=== PATIENT | male | born 1945 | race Caucasian/White ===

== ENCOUNTER 2018-07-28 23:09 | Emergency (ER) | payer OTHER, MEDICAID ==
[~2018-07-28] VITALS: Ht 167.6 cm; Wt 39.5 kg
[2018-07-28] MEDS ORDERED: PLAVIX 75 MG TA75 M1 PO (23:26)
[2018-07-28] MEDS ORDERED: HYDROXYZINE HCL25 M1 PO (23:27)
[2018-07-28] MEDS ORDERED: DILTIAZEM HCL90 MG PO (23:27)
[2018-07-28] MEDS ORDERED: REMERON15 MG PO (23:28)
[2018-07-28] MEDS ORDERED: ATIVAN0.5 MG PO (23:28)
[2018-07-28] MEDS ORDERED: MS CONTIN 30 MG30 MG PO (23:28)
[2018-07-28] MEDS ORDERED: KLOR-CON 1010 MEQ PO (23:29)
[2018-07-28] MEDS ORDERED: AMBIEN 5 MG TABL5 M1 PO (23:29)
[2018-07-28] MEDS ORDERED: FLOMAX0.4 MG PO (23:29)
[2018-07-29 00:54] LABS: ABSOLUTE EOSINOPHILS 0.1 thou/uL (0.0-0.7); ABSOLUTE LYMPHOCYTES 1.6 thou/uL (0.8-5.3); ABSOLUTE MONOCYTES 0.6 thou/uL (0.0-1.2); ABSOLUTE NEUTROPHILS 2.9 thou/uL (1.6-8.1); BASOPHILS 0.6 %; HEMATOCRIT 31.4 % (42.0-52.0); HEMOGLOBIN 10.6 gm/dL (14.0-18.0); LYMPHOCYTES 30.9 %; MCH 30.8 pg (26.0-34.0); MCHC 33.9 g/dL (28.0-37.0); MCV 90.8 fL (80.0-100.0); MONOCYTES 11.2 %; MPV 7.9 fl. (7.2-11.1); NUCLEATED RBCS 0 /100WBC; PLATELET COUNT* 198 thou/uL (150-400); POLYS 56.3 %; RBC 3.46 mil/uL (4.50-6.00); RDW-CV 14.1 % (10.5-14.5); WBC 5.2 thou/uL (4.0-11.0)
[2018-07-29 00:59] LABS: ANION GAP 8 mmol/L (7-16); BUN 7 mg/dL (7-18); CALCIUM 8.7 mg/dL (8.5-10.1); CHLORIDE 100 mmol/L (98-107); CO2 29 mmol/L (21-32); CREATININE 0.8 mg/dL (0.6-1.3); GLUCOSE 79 mg/dL (70-99); POTASSIUM 3.4 mmol/L (3.5-5.1); SODIUM 137 mmol/L (136-145)
[2018-07-29 01:02] LABS: URINE BILIRUBIN NEGATIVE (Negative); URINE BLOOD NEGATIVE (Negative); URINE CLARITY CLEAR; URINE COLOR YELLOW; URINE GLUCOSE-RANDOM NEGATIVE (Negative); URINE KETONES NEGATIVE (Negative); URINE LEUKOCYTES-REFLEX NEGATIVE (Negative); URINE NITRITE-REFLEX NEGATIVE (Negative); URINE PROTEIN NEGATIVE (Negative); URINE SPECIFIC GRAVITY <= 1.005 (1.005-1.030); URINE UROBILINOGEN 0.2 E.U./dl (0.2-1.0)
[2018-07-29 01:08] LABS: ALBUMIN 2.8 g/dL (3.4-5.0); ALKALINE PHOSPHATASE 100 U/L (46-116); LIPASE 87 U/L (73-393); SGOT 21 U/L (15-37); SGPT 12 U/L (30-65); TOTAL BILIRUBIN 0.5 mg/dL (<0.1-1.0); TOTAL PROTEIN 6.1 g/dL (6.4-8.2); TROPONIN-I LEVEL <0.06 ng/mL (<0.06)
[2018-07-29 01:10] LABS: AMP/METHAMP Negative (Negative); BARBITURATES Negative (Negative); BENZODIAZEPINES Negative (Negative); COCAINE Negative (Negative); METHADONE Negative (Negative); OPIATES POSITIVE (Negative); PCP Negative (Negative); THC Negative (Negative)
[2018-07-29 01:48] VITALS: BP 107/54
== END 2018-07-29 01:48 | disposition home or self-care (01) ==
LOC: M.ERS 23:09
PROVIDERS: Emergency Medicine
DX: Z91.14 Patient's other noncompliance with medication regimen (principal); Z88.5 Allergy status to narcotic agent; Z88.8 Allergy status to other drugs, medicaments and biological substances; Z86.73 Personal history of transient ischemic attack (TIA), and cerebral infarction without residual deficits

== ENCOUNTER 2018-09-06 21:32 | Inpatient (IN) | payer OTHER, MEDICAID ==
[~2018-09-06] VITALS: Ht 170.2 cm; Wt 35.0 kg
--- NOTE | ~2018-09-06 | CON ---
[address] [address] CONSULTATION Name: MICAH LORENZO Room: [address] IN .R.#: [id number] Admission: 09/07/18 Attend Phys: Braulio Tovar MD Discharge: Date of : 49 Report #: [id number] THIS REPORT FOR: //name// CC: Braulio Davey DICTATED BY: Mariluz DELONGP DATE OF SERVICE: 09/07/2018 Please note at the time of this dictation, the patient was seen and physically examined by myself. REASON FOR CONSULTATION: Anemia. HISTORY OF PRESENT ILLNESS: This is a 72-year-old male who presented to the Emergency Room after falling several times at home and worsening over the past week. He was noted in the ER that he had a nondisplaced fracture of the right olecranon and right proximal humerus. He has been followed by Orthopedic and is currently placed in an immobilizer. The patient denies any overt bleeding. Denies any nausea, vomiting, abdominal pain or any change in his stools. He states he has had endoscopy studies, but he is unable to tell me where or when. The patient throughout the interview process kept falling asleep and unable to keep his eyes open and carry on a conversation. He states he has never been told he has been anemic before. He states he does not have much of an appetite and his general appearance is he is very thin and very cachectic looking. He states he lives with his daughter and granddaughter and they all help take care of each other. ALLERGIES: CODEINE AND HYDROCODONE. MEDICATIONS FROM HOME: Include lorazepam, Remeron, potassium, Flomax, and Ambien. 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 FAMILY HISTORY: Unable to obtain, he is unaware of any. SOCIAL HISTORY: He denies any alcohol use. He did smoke tobacco and has been addicted to morphine in the past and lives with his daughter and granddaughter at the present time. REVIEW OF SYSTEMS: Twelve-point review of systems is essentially negative. PHYSICAL EXAMINATION: [place] [address] CONSULTATION Name: MICAH LORENZO Room: [address]#: [id number] Admission: 09/07/18 Attend Phys: Braulio Tovar MD Discharge: Date of : 49 Report #: [id number] VITAL SIGNS: Temperature 36.8, pulse 89, respirations 16, blood pressure 139/87. HEART: Regular rate and rhythm. LUNGS: Clear, but diminished. ABDOMEN: Soft, positive bowel sounds in all 4 quadrants with no masses or tenderness noted. NEUROLOGIC: The patient is cooperative, very drowsy, but able to be aroused. He is very thin and cachectic in appearance. He is oriented to self and place, but not to time and cannot give me an accurate history. LABORATORY DATA: Hemoglobin mid July when he was in the Emergency Room was 10.6, he is now 8.9. White count is 7.4 and platelets 218, MCV is 92.4, GFR is 74. BNP is 1338. Iron 31, ferritin 214, percentage sat iron is 19, TIBC is 163. LFTs are normal. B12 is 360. Total protein 5.9, albumin is 2.8. D-dimer is 35.2. IMPRESSION: 1. Anemia with no overt bleeding noted. 2. Loss of appetite. 3. Cachectic and thin in appearance. 4. Right humerus and olecranon process fracture, nondisplaced. PLAN: 1. EGD tomorrow with Dr. Valerio. 2. The patient unlikely able to tolerate a colonoscopy prep at this time. 3. We will monitor for overt bleeding. 4. We will attempt to find if he has had any endoscopy studies done in the area. Thank you for allowing us to participate in this patient's care. Please do not hesitate to call with any questions in regard to this consult. By: [id number] Valerio DO /nt
[~2018-09-06 21:32] MED LIST: AMBIEN 5 MG TABL5 M1 PO; ATIVAN0.5 MG PO; DILTIAZEM HCL90 MG PO; FLOMAX0.4 MG PO; HYDROXYZINE HCL25 M1 PO; KLOR-CON 1010 MEQ PO; MS CONTIN 30 MG30 MG PO; PLAVIX 75 MG TA75 M1 PO; REMERON15 MG PO
[2018-09-06 21:41] VITALS: BP 145/91
[2018-09-06 22:19] LABS: ABSOLUTE LYMPHOCYTES 1.2 thou/uL (0.8-5.3); ABSOLUTE MONOCYTES 0.6 thou/uL (0.0-1.2); ABSOLUTE NEUTROPHILS 6.1 thou/uL (1.6-8.1); BASOPHILS 0.5 %; EOSINOPHILS 0.1 %; HEMATOCRIT 26.4 % (42.0-52.0); HEMOGLOBIN 8.9 gm/dL (14.0-18.0); LYMPHOCYTES 15.1 %; MCH 31.2 pg (26.0-34.0); MCHC 33.8 g/dL (28.0-37.0); MCV 92.4 fL (80.0-100.0); MONOCYTES 7.5 %; MPV 6.7 fl. (7.2-11.1); NUCLEATED RBCS 0 /100WBC; PLATELET COUNT* 218 thou/uL (150-400); POLYS 76.8 %; RBC 2.86 mil/uL (4.50-6.00); RDW-CV 16.5 % (10.5-14.5); WBC 7.9 thou/uL (4.0-11.0)
[2018-09-06 22:28] LABS: ANION GAP 9 mmol/L (7-16); BUN 17 mg/dL (7-18); CALCIUM 8.2 mg/dL (8.5-10.1); CHLORIDE 108 mmol/L (98-107); CO2 28 mmol/L (21-32); GLUCOSE 92 mg/dL (70-99); POTASSIUM 4.2 mmol/L (3.5-5.1); SODIUM 145 mmol/L (136-145)
[2018-09-06 22:39] LABS: ALBUMIN 2.8 g/dL (3.4-5.0); ALKALINE PHOSPHATASE 122 U/L (46-116); NT-PRO BRAIN NAT PEPTIDE 1338 pg/mL (<300); SGOT 26 U/L (15-37); SGPT 21 U/L (30-65); TOTAL BILIRUBIN 0.4 mg/dL (<0.1-1.0); TOTAL PROTEIN 5.9 g/dL (6.4-8.2); TROPONIN-I LEVEL <0.06 ng/mL (<0.06)
[2018-09-06 22:40] LABS: INR 1.2; PROTIME 11.8 Seconds (9.20-11.50)
[2018-09-06 22:57] LABS: SALICYLATE 8.9 mg/dL (2.8-20.0)
[2018-09-07 01:56] LABS: % SATURATION 19 % (20-39); IRON 31 ug/dL (50-175)
[2018-09-07 02:15] VITALS: BP 135/80
[2018-09-07 02:33] VITALS: BP 134/84
--- NOTE | 2018-09-07 04:38 | NUR ---
ADMIT FROM ED TO ROOM 213. ALERT AND ORIENTED. UP TO VOID WITH ONE PERSON ASSIST. R ARM IN SPLINT WITH PADDING AND WRAPPED WITH SLING ON. FENTANYL AND ATIVAN GIVEN. PT SLEEPING. NPO SINCE ADMIT FOR ORTHO CONSULT. MED SURG STATUS.
[2018-09-07 08:00] VITALS: BP 139/87
--- NOTE | 2018-09-07 10:21 | EKG ---
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1945 Requested By: Summer Yancey Order Number: [id number] MD: Bin Abreu Measurements Intervals [place] Rate: 99 P: 71 [place]: 152 QRS: -50 QRSD: 88 T: 41 QT: 387 QTc: 497 Interpretive Statements Sinus rhythm LAD, consider left anterior fascicular block Borderline low voltage, extremity leads Borderline prolonged QT interval No previous ECG available for comparison Electronically Signed On 09-07-2018 10:21:14 CDT by Bin Abreu [email or web address] <ELECTRONICALLY SIGNED> By: Bin Abreu MD, [facility] 09/07/18 1021 [id number] 05 Bin Abreu MD, [facility] /EPI
--- NOTE | 2018-09-07 10:38 | NUR ---
VSS, ASSUMED CARE IN THE AM, ASSESSMENT PERFORMED AND CHARTED, FALL PRECAUTIONS IN PLACE AND CALL LIGHT IN REACH, PT IS A&O3-4, HE IS VERY SLEEPY AND HE STATES PAIN IN HIS RIGHT ARM, PT GOAL IS TO WORK WITH PT.OT, SIT UP TO CHAIR, PT IS ON RA AND IS M/S STATUS, WILL FOLLOW WITH PLAN OF CARE.
--- NOTE | 2018-09-07 14:36 | NUR ---
INITIAL ASSESSMENT: Pt evaluated for d/c planning needs. Reviewed chart and spoke with physician, pt and pt's ex-. Pt is alert and oriented. Pt lives in mobile home and his daughter is his caregiver through [employer]. Pt has walker and cane at home. Pt said after he had his stroke, he went to inpatient rehab at [facility]. Pt returned home after that. Pt said he has not been to SNF in the past. Pt said he plans on returning home, but ex- thinks it would be better for pt to go to SNF for short time prior to returning home. Pt and ex- were given list of facilities in network with insurance, and they would like pt to be evaluated by [facility]. Asked material planner to send referral. Left list with pt and ex- and they will talk with other family members prior to d/c. Will remain available to assist as needed.
--- NOTE | 2018-09-07 15:19 | NUR ---
BURIAL NEEDS SALESPERSON INFORMED OF THE NEED TO FAX SKILLED REFERRAL TO [facility]. D/C TRANSMISSION SYSTEM OPERATOR FAXED PATIENT'S FACESHEET, AND CLINICAL INFO. PT/OT IS ORDERED, BU THERE ARE CURRENTLY NO NOTES AVAILABLE TO SEND. D/C TRANSMISSION SYSTEM OPERATOR WILL FAX PT/OT NOTES TO [facility] WHEN AVAILABLE. [facility] WILL NEED THESE NOTES IN ORDER TO WORK ON SKILLED AUTH FOR THE PATIENT. CM WILL REMAIN AVAILABEL TO ASSIST AND FOLLOW NEEDED.
[2018-09-07 16:00] VITALS: BP 108/70
[2018-09-07 20:00] VITALS: BP 125/47
[2018-09-08] VITALS: BP 130/91
[2018-09-08 02:50] LABS: URINE BILIRUBIN NEGATIVE (Negative); URINE BLOOD NEGATIVE (Negative); URINE CLARITY CLEAR; URINE COLOR YELLOW; URINE GLUCOSE-RANDOM NEGATIVE (Negative); URINE KETONES NEGATIVE (Negative); URINE LEUKOCYTES-REFLEX NEGATIVE (Negative); URINE NITRITE-REFLEX NEGATIVE (Negative); URINE PROTEIN NEGATIVE (Negative); URINE SPECIFIC GRAVITY 1.025 (1.005-1.030); URINE UROBILINOGEN 0.2 E.U./dl (0.2-1.0)
[2018-09-08 03:19] LABS: AMP/METHAMP Negative (Negative); BARBITURATES Negative (Negative); BENZODIAZEPINES Negative (Negative); COCAINE Negative (Negative); METHADONE Negative (Negative); OPIATES Negative (Negative); PCP Negative (Negative); THC Negative (Negative)
--- NOTE | 2018-09-08 04:28 | NUR ---
PT ALERT ORIENTED. UP TO BR WITH ASSIST OF ONE. MED SURG STATUS. NPO SINCE [place] FOR EGD AT 10:30. R ARM IMMOBILIZER IN PLACE. SUPPORTED WITH PILLOW. TRAMADOL AND IBUPROPHEN FOR PAIN.
[2018-09-08 05:20] LABS: ABSOLUTE LYMPHOCYTES 1.7 thou/uL (0.8-5.3); ABSOLUTE MONOCYTES 0.5 thou/uL (0.0-1.2); ABSOLUTE NEUTROPHILS 5.7 thou/uL (1.6-8.1); BASOPHILS 0.5 %; EOSINOPHILS 0.6 %; HEMATOCRIT 26.5 % (42.0-52.0); LYMPHOCYTES 20.9 %; MCH 31.7 pg (26.0-34.0); MCHC 34.1 g/dL (28.0-37.0); MONOCYTES 6.7 %; MPV 7.3 fl. (7.2-11.1); NUCLEATED RBCS 0 /100WBC; PLATELET COUNT* 200 thou/uL (150-400); POLYS 71.3 %; RBC 2.85 mil/uL (4.50-6.00); RDW-CV 17.2 % (10.5-14.5)
[2018-09-08 05:47] LABS: ALBUMIN 2.3 g/dL (3.4-5.0); CALCIUM 8.2 mg/dL (8.5-10.1); CREATININE 0.9 mg/dL (0.6-1.3); MAGNESIUM 1.7 mg/dL (1.8-2.4); POTASSIUM 3.9 mmol/L (3.5-5.1); TOTAL BILIRUBIN 0.5 mg/dL (<0.1-1.0); TOTAL PROTEIN 5.2 g/dL (6.4-8.2)
[2018-09-08 07:57] VITALS: BP 132/80
[2018-09-08 16:10] VITALS: BP 135/87
--- NOTE | 2018-09-08 17:09 | NUR ---
PATIENT AGITATED WITH STAFF AND FAMILY AT TIMES THIS SHIFT. PATIENT CONTINUALLY SAYING HE WANTED TO GO HOME, BUT PATIENT WAS ALSO AGREEABLE MULTIPLE TIMES TO GO TO SNF. RIGHT IMMOBILIZER REMAINS IN PLACE. PATIENT WORKED WITH THERAPY TODAY. PATIENT IS UNSTEADY, ATTEMPTED MULTIPLE TIMES TO GET OUT OF BED BY HIS SELF AND SET BED ALARM OFF. PATIENT VERY UNSTEADY WHEN HE ATTEMPTS TO GET OUT OF BED BY HIMSELF. PATIENT TO HAVE C-SPINE CT DONE THIS AFTERNOON, PER CT PROCEDURE WAS DONE WHEN PATIENT ADMITTED. PRN ATIVAN AND TRAMADOL GIVEN FOR PAIN AND ANXIETY/AGITATION. PATIENT DIET AND LIQUIDS ENCOURAGED. PATIENT CURRENTLY AWAITING INSURANCE AUTH FOR SNF.
[2018-09-08 20:15] VITALS: BP 119/77
[2018-09-09] VITALS: BP 158/90
[2018-09-09 02:42] VITALS: BP 133/73
--- NOTE | 2018-09-09 07:59 | NUR ---
PATIENT TRANSFERRED FROM TELEMETRY TO ROOM 113. VSS ON RA. NO C/O PAIN. SLING TO RIGHT ARM IN PLACE. PATIENT TRIES TO GET UP OUT OF BED AND DOES NOT USE CALL LIGHT APPROPRIATELY AND IS CONFUSED AT TIMES. FALL PRECAUTIONS IN PLACE AND HOURLY ROUNDS MADE. IV IN LEFT FOREARM-SL. WILL CONTINUE WITH PLAN OF CARE AND NURSING TO MONITOR.
[2018-09-09 09:55] VITALS: BP 134/84
--- NOTE | 2018-09-09 15:27 | NUR ---
HEARING AID MECHANIC SPOKE TO [facility] CHRISSY (DPTONIO) TO DISCUSS DISCHARGE PLANNING AND TO INFORM OF [facility] DENIAL OF THE PATEINT DUE TO THE PATIENT'S INSURANCE BEING OUT OF NETWORK. PATIENT'S DTR REQUEST THAT OTHER FACILITIES BE ATTEMPTED FOR SNF PLACEMENT. PATIENT'S DTR REQUEST THAT REFERRAL BE SENT TO ALL SNF IN [place] INCLUDING [facility], [facility], AND [facility] AND [facility]. D/C WOODWIND REEDS CUTTER SPOKE TO ADMISSIONS AT ALL OF THE ABOVE FACILTIES AND FAXED REFERRAL TO [facility], [facility], AND [facility]. D/C WOODWIND REEDS CUTTER AWAITING RETURN CALL FROM SNF'S TO [facility] TO ACCEPT PATIENT. CM WILL REMAIN AVAILABLE TO ASSIST AND FOLLOW NEEDED.
[2018-09-09 16:00] VITALS: BP 130/76
--- NOTE | 2018-09-09 16:00 | NUR ---
PT.OUT IN ESTRELLA BY SELF. OSMIN RENTERIA TOLD CM THAT PT.WANTS TO GO HOME NOW. NSG.SUPERVIOSR,MILTON Wahl, SPOKE WITH HIM. HE SAID PT.ADAMANT ABOUT GOING HOME. HE TOLD HIM WE WILL GET HIM A CAB VOUCHER. NURSING NOTIFIED . TAMAR SPOKE WITH PT. HE SAID HE IS SO COLD HE HAS TO GET OUT OF HERE. HE JUST NEEDS TO GO HOME! HE SAID THERE IS SOMEONE THERE TO LET HIM IN THE HOUSE. TAMAR ATTMEPTED TO CALL DAUGHTER/CHRISSY BOTELLO. FIRST TIME SHE DID NOT ANSWER. LEFT . TAMAR BIRCH CALLED AGAIN AND SPOKE WITH CHRISSY. SHE SAID SHE WOULD COME TO HOSPITAL TO TALK WITH HIM AND TRY TO GET HIM TO STAY. SHE STILL WOULD LIKE HIM TO A SNF FOR THERAPY. OSMIN RENTERIA INFORMED DAUGHTER WAS COMING.
--- NOTE | 2018-09-09 17:20 | NUR ---
AMA. PATIENT INSISTING ON LEAVING AMA THIS AFTERNOON. NOTIFIED, TARIFF INSPECTOR IN TO TALK TO PATIENT ALONG WITH COUNTERINTELLIGENCE AGENT. PATIENT CONTINUES TO BE INSISTANT ON LEAVING. DTR NOTIFIED, STATES THAT SHE WILL COME TALK TO PATIENT, PATIENT NOT WILLING TO WAIT. REPEATED ATTEMPTS THRU SHIFT TO EDUCATE PATIENT ON NOT GETTING UP ON HIS OWN, PATIENT CONTINUES TO GET OUT OF BED INDEP. PATIENT ALERT AND ORIENTED THRU SHIFT. VERBALIZES UNDERSTANDING OF INSTRUCTION. IMMOBILIZER TO RUE ON THRU SHIFT. PATIENT SIGNS AMA PAPER WHILE VERBALIZING UNDERSTANDING OF AMA RELEASE OF RESPONSIBILITY. PATIENT ESCORTED TO JSSI ENTRANCE. DTR ARRIVES TO MOTOR BIKE MECHANIC PATIENT. PATIENT ESCORTED TO DTR'S VEHICLE. PATIENT ENC TO F/U WITH PRIMARY CARE PHYSICIAN.
== END 2018-09-09 17:20 | disposition left against medical advice (07) | DRG 543 ==
LOC: M.ERS 21:32 → M.TBA-ER 09-07 01:11 → M.2W 09-07 01:11 → M.ORTHSURG 09-07 01:11 → M.2W 09-07 02:55 → M.ORTHSURG 09-09 02:14
PROVIDERS: Emergency Medicine; Internal Medicine; ADMIT Internal Medicine
DX: M80.021A Age-related osteoporosis with current pathological fracture, right humerus, initial encounter for fracture (principal); E44.0 Moderate protein-calorie malnutrition; I69.351 Hemiplegia and hemiparesis following cerebral infarction affecting right dominant side; Z68.1 Body mass index [BMI] 19.9 or less, adult; E83.42 Hypomagnesemia; D64.9 Anemia, unspecified; F17.210 Nicotine dependence, cigarettes, uncomplicated; D50.9 Iron deficiency anemia, unspecified; Z53.21 Procedure and treatment not carried out due to patient leaving prior to being seen by health care provider; Z88.6 Allergy status to analgesic agent; W18.39XA Other fall on same level, initial encounter; Y93.89 Activity, other specified; Y92.098 Other place in other non-institutional residence as the place of occurrence of the external cause; Y99.8 Other external cause status; M80.031A Age-related osteoporosis with current pathological fracture, right forearm, initial encounter for fracture

== ENCOUNTER 2020-11-11 16:29 | Emergency (ER) | payer OTHER, MEDICAID ==
[~2020-11-11] VITALS: Ht 170.2 cm; Wt 43.1 kg
[2020-11-11 16:31] VITALS: BP 143/98
[2020-11-11 16:50] LABS: ABSOLUTE BASOPHILS 0.1 thou/uL (0.0-0.2); ABSOLUTE LYMPHOCYTES 1.6 thou/uL (0.8-5.3); ABSOLUTE MONOCYTES 0.6 thou/uL (0.0-1.2); ABSOLUTE NEUTROPHILS 4.2 thou/uL (1.6-8.1); BASOPHILS 1.1 %; EOSINOPHILS 0.4 %; HEMATOCRIT 35.7 % (42.0-52.0); HEMOGLOBIN 11.7 gm/dL (14.0-18.0); LYMPHOCYTES 24.3 %; MCH 27.4 pg (26.0-34.0); MCHC 32.9 g/dL (28.0-37.0); MCV 83.2 fL (80.0-100.0); MONOCYTES 9.2 %; NUCLEATED RBCS 0 /100WBC; PLATELET COUNT* 220 thou/uL (150-400); RBC 4.29 mil/uL (4.50-6.00); RDW-CV 14.1 % (10.5-14.5); WBC 6.5 thou/uL (4.0-11.0)
[2020-11-11 16:58] LABS: CALCIUM 8.4 mg/dL (8.5-10.1); CREATININE 0.9 mg/dL (0.6-1.3); POTASSIUM 3.2 mmol/L (3.5-5.1)
[2020-11-11 16:59] LABS: URINE BLOOD NEGATIVE (Negative); URINE CLARITY CLEAR; URINE COLOR YELLOW; URINE GLUCOSE-RANDOM NEGATIVE (Negative); URINE KETONES NEGATIVE (Negative); URINE LEUKOCYTES-REFLEX NEGATIVE (Negative); URINE NITRITE-REFLEX NEGATIVE (Negative); URINE PROTEIN TRACE (Negative); URINE SPECIFIC GRAVITY 1.025 (1.005-1.030); URINE UROBILINOGEN 0.2 E.U./dl (0.2-1.0)
[2020-11-11 17:00] LABS: ICTOTEST (BILI CONFIRMATORY) Negative (Negative); URINE BILIRUBIN 1+ (Negative)
[2020-11-11 17:03] LABS: ALBUMIN 3.2 g/dL (3.4-5.0); TOTAL BILIRUBIN 0.7 mg/dL (<0.1-1.0); TOTAL PROTEIN 6.3 g/dL (6.4-8.2)
--- NOTE | 2020-11-11 20:57 | NUR ---
SPOKE TO ABOUT PT WANTING TO LEAVE AMA. ALSO SPOKE TO DAUGHTER LYNN SHE STATES SHE TRIES TO GET HIM MEDICAL HELP BUT EVERY TIME HE GETS TO A HOSPITAL HE REFUSES TO BE ADMITTED. PT DID AMBULATE TO THE BATHROOM WITH SOME STAND BY ASSIST BY RN. PT IS AOX3 SAID IT WAS OCT 15O SOMETHING OF 2020. BUT ANSWERED ALL QUESTIONS APPROPRIATE. PT STATED TO ME THAT HE KNEW HIS PT RIGHTS AND THAT WE COULD NOT KEEP HIM AGAINST HIS WILL. PT TRIED TO PULL ALL THINGS MONITOR IV B/P CUFF ECT. HE SAID HE WANTED TO GO HOME. RAYMUNDO OLIVAS REPORTED THIS TO ME AND THEN THEY MOVED HIM FROM RM 15 TO 18 FOR CLOSER OBSERVATION. DAUGHTER IS OK WITH TAKING HIM HOME AND STATES THAT HE IS IN HIS RIGHT MIND BUT IS DECLINING IN THE ABILTY TO CARE FOR HIMSELF BUT THE DAUGHTER DOES LIVE WITH HIM LABORER PIE BAKERY.
[2020-11-11 21:43] VITALS: BP 149/84
--- NOTE | 2020-11-12 10:46 | EKG ---
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1945 Requested By: Bk Sánchez Order Number: [id number] MD: Misael Valverde Measurements Intervals [place] Rate: 92 P: 64 AR: 154 QRS: -48 QRSD: 85 T: 40 QT: 402 QTc: 498 Interpretive Statements Sinus rhythm Probable left atrial enlargement Left axis deviation Borderline low voltage, extremity leads Abnormal R-wave progression, early transition Borderline prolonged QT interval Compared to ECG 09/06/2018 22:06:21 no change Electronically Signed On 11-12-2020 10:46:30 CDT by Misael Valverde [email or web address] <ELECTRONICALLY SIGNED> By: Misael Valverde MD, [facility] 11/12/20 1046 40 40 Misael Valverde MD, [facility] /EPI
== END 2020-11-11 21:44 | disposition still patient (30) ==
LOC: M.ERS 16:29 → M.TBA-ER 18:38
PROVIDERS: Family Medicine
DX: R53.1 Weakness (principal); Z20.822 Contact with and (suspected) exposure to COVID-19; R07.81 Pleurodynia; E87.6 Hypokalemia; E83.42 Hypomagnesemia; Z86.73 Personal history of transient ischemic attack (TIA), and cerebral infarction without residual deficits; Z79.899 Other long term (current) drug therapy; Z88.6 Allergy status to analgesic agent; Z88.5 Allergy status to narcotic agent; W19.XXXA Unspecified fall, initial encounter; Y93.89 Activity, other specified; Y92.89 Other specified places as the place of occurrence of the external cause; Y99.8 Other external cause status